=== PATIENT | female | born 1965 | race Caucasian/White ===

== ENCOUNTER 2018-01-31 14:43 | Emergency (ER) | payer MEDICAID ==
[~2018-01-31] VITALS: Ht 157.5 cm; Wt 95.0 kg
[~2018-01-31 14:43] MED LIST: ADV50250 IH; ALB0.5UD IH; AZIT250T PO; BUSP10TA11 PO; ESTR-8 PO; IBUP-1986 PO; LAMO200T2 PO; LEVA15HF4 IH; LURA40TA PO; PRED10TA23 PO; QUET200T PO; TIOT18CA7 IH; [UNRECOGNIZED DRUG - CODE] PO
[2018-01-31 14:55] VITALS: BP 148/95
[2018-01-31] MEDS ORDERED: SULF1TAB48 PO (15:24)
== END 2018-01-31 15:36 | disposition home or self-care (01) ==
LOC: ER 14:43
DX: L02.512 Cutaneous abscess of left hand (principal); L02.415 Cutaneous abscess of right lower limb; G89.29 Other chronic pain; J44.9 Chronic obstructive pulmonary disease, unspecified; Z86.14 Personal history of Methicillin resistant Staphylococcus aureus infection; F15.90 Other stimulant use, unspecified, uncomplicated; Z90.49 Acquired absence of other specified parts of digestive tract; Z79.2 Long term (current) use of antibiotics; Z79.899 Other long term (current) drug therapy
CPT/HCPCS: 99284

== ENCOUNTER 2019-01-04 13:04 | Emergency (ER) | payer MEDICAID ==
[~2019-01-04] VITALS: Ht 154.9 cm; Wt 77.3 kg
[2019-01-04] MEDS ORDERED: normal saline 1000ML IV soln IVB ONE (13:10)
[2019-01-04] MEDS ORDERED: LORazepam 2 mg/ml vial IV ONE (13:10)
[2019-01-04 13:32] LABS: BASOPHILS # (AUTO) 0.1 X10'3 (0-0.2); BASOPHILS % (AUTO) 0.7 % (0-1); EOSINOPHILS # (AUTO) 0.2 X10'3 (0-0.9); EOSINOPHILS % (AUTO) 1.7 % (0-6); HEMATOCRIT 43.3 % (35.0-45.0); HEMOGLOBIN 14.4 g/dl (12.0-16.0); LYMPHOCYTES % (AUTO) 21.6 % (21-51); MEAN CORPUSCULAR HEMOGLOBIN 29.1 PG (27.0-31.0); MEAN CORPUSCULAR HGB CONC 33.2 g/dL (33.0-36.5); MEAN CORPUSCULAR VOLUME 87.7 FL (78-98); MONOCYTES # (AUTO) 0.7 X10'3 (0-0.9); MONOCYTES % (AUTO) 7.5 % (2-12); NEUTROPHILS # (AUTO) 6.4 X10'3 (1.8-7.7); NEUTROPHILS % (AUTO) 68.5 % (42-75); PLATELET COUNT 344 X10'3 (140-440); RED BLOOD COUNT 4.93 X10'6 (4.20-5.60); RED CELL DISTRIBUTION WIDTH 14.1 % (11.5-14.5); WHITE BLOOD COUNT 9.3 X10'3 (4.5-11.0)
[2019-01-04 13:47] LABS: ALANINE AMINOTRANSFERASE 23 U/L (12-78); ALBUMIN 4.1 G/DL (3.4-5.0); ALBUMIN/GLOBULIN RATIO 1.2 (1.1-1.5); ALKALINE PHOSPHATASE 96 IU/L (46-116); ANION GAP 10 (8-16); ASPARTATE AMINO TRANSFERASE 14 U/L (10-37); BILIRUBIN,TOTAL 0.3 MG/DL (0.1-1.0); BLOOD UREA NITROGEN 26 MG/DL (7-18); CHLORIDE 105 MMOL/L (99-107); CREATININE 0.84 MG/DL (0.40-0.90); GLUCOSE 122 MG/DL (70-104); MAGNESIUM 1.8 MG/DL (1.5-2.4); POTASSIUM 3.5 MMOL/L (3.5-5.1); SODIUM 142 MMOL/L (135-145); TOTAL CARBON DIOXIDE 27.1 MMOL/L (24-32); TOTAL PROTEIN 7.5 G/DL (6.4-8.2); eGFR 71 ML/MIN
--- NOTE | 2019-01-04 13:48 | NUR ---
PT SLEEPING NOW AFTER MEDICATION. VSS.
[2019-01-04] MEDS ORDERED: ONDA4TAB12 PO (13:56)
[2019-01-04] MEDS ORDERED: MECL-111 PO (13:56)
--- NOTE | 2019-01-04 14:10 | NUR ---
Pt is stating at this time that she cannot go to CT unless she receives pain medication.
[2019-01-04 15:17] VITALS: BP 145/71
== END 2019-01-04 16:04 | disposition home or self-care (01) ==
LOC: ER 13:04
DX: R42 Dizziness and giddiness (principal); R55 Syncope and collapse; J44.9 Chronic obstructive pulmonary disease, unspecified; G89.29 Other chronic pain; F17.210 Nicotine dependence, cigarettes, uncomplicated; F15.90 Other stimulant use, unspecified, uncomplicated; Z90.49 Acquired absence of other specified parts of digestive tract; Z86.14 Personal history of Methicillin resistant Staphylococcus aureus infection; Z98.51 Tubal ligation status; Z60.2 Problems related to living alone; Z79.899 Other long term (current) drug therapy
CPT/HCPCS: 36415; 70450; 71045; 80053; 83735; 85025; 93005; 96361; 96374; 99284; J2060; J7030

== ENCOUNTER 2019-05-08 15:15 | Emergency (ER) | payer MEDICAID ==
[~2019-05-08 15:15] MED LIST changes: +MECL-159 PO; +ONDA4TAB12 PO
== END 2019-05-08 17:20 | disposition left against medical advice (07) ==
LOC: ER 15:15
DX: R51 Headache (principal); Z53.21 Procedure and treatment not carried out due to patient leaving prior to being seen by health care provider

== ENCOUNTER 2019-06-19 23:02 | Emergency (ER) | payer MEDICAID ==
[~2019-06-19] VITALS: Ht 154.9 cm; Wt 77.3 kg
[2019-06-19] MEDS ORDERED: ondansetron/PF 4mg/2ml inj IV ONE (23:15)
[2019-06-19] MEDS ORDERED: ketorolac trometh. 30mg/ml inj. IV ONE (23:15)
[2019-06-19] MEDS ORDERED: morphine 4 MG/ML inj SYRINge IV ONE (23:15)
[2019-06-19] MEDS ORDERED: triamcinolone acetonide 40mg/ml inj IM ONE (23:20)
[2019-06-19] MEDS ORDERED: methylPREDNISolone sod succ 125mg/2ml vial IV ONE (23:20)
[2019-06-19] MEDS ORDERED: normal saline 1000ml 1,000 ML IV ONE (23:55)
[2019-06-19 23:56] LABS: BASOPHILS # (AUTO) 0.1 X10'3 (0-0.2); BASOPHILS % (AUTO) 0.6 % (0-1); EOSINOPHILS # (AUTO) 0.1 X10'3 (0-0.9); HEMATOCRIT 36.7 % (35.0-45.0); HEMOGLOBIN 12.4 g/dl (12.0-16.0); LYMPHOCYTES # (AUTO) 1.3 X10'3 (1.1-4.8); LYMPHOCYTES % (AUTO) 10.5 % (21-51); MEAN CORPUSCULAR HEMOGLOBIN 29.4 PG (27.0-31.0); MEAN CORPUSCULAR HGB CONC 33.8 g/dL (33.0-36.5); MEAN PLATELET VOLUME 7.8 FL (7.4-10.4); MONOCYTES # (AUTO) 0.8 X10'3 (0-0.9); MONOCYTES % (AUTO) 6.3 % (2-12); NEUTROPHILS # (AUTO) 10.4 X10'3 (1.8-7.7); NEUTROPHILS % (AUTO) 81.6 % (42-75); PLATELET COUNT 232 X10'3 (140-440); RED BLOOD COUNT 4.22 X10'6 (4.20-5.60); RED CELL DISTRIBUTION WIDTH 14.4 % (11.5-14.5); WHITE BLOOD COUNT 12.8 X10'3 (4.5-11.0)
[2019-06-20 00:07] LABS: ALANINE AMINOTRANSFERASE 19 U/L (12-78); ALBUMIN 3.4 G/DL (3.4-5.0); ALKALINE PHOSPHATASE 74 IU/L (46-116); ANION GAP 5 (8-16); ASPARTATE AMINO TRANSFERASE 14 U/L (10-37); BILIRUBIN,TOTAL 0.6 MG/DL (0.1-1.0); BLOOD UREA NITROGEN 17 MG/DL (7-18); BUN/CREATININE RATIO 22.4 (6.6-38.0); CALCIUM 8.6 MG/DL (8.5-10.1); CHLORIDE 106 MMOL/L (99-107); CREATININE 0.76 MG/DL (0.40-0.90); GLUCOSE 116 MG/DL (70-104); POTASSIUM 3.1 MMOL/L (3.5-5.1); SODIUM 141 MMOL/L (135-145); TOTAL CARBON DIOXIDE 29.6 MMOL/L (24-32); TOTAL PROTEIN 6.8 G/DL (6.4-8.2); eGFR 80 ML/MIN
[2019-06-20 01:20] LABS: TROPONIN I < 0.04 NG/ML (0.0-0.05)
[2019-06-20] MEDS ORDERED: azithromycin 250mg tablet PO ONE (01:25)
[2019-06-20] MEDS ORDERED: ipratropium/albuterol 3ml nebule NEB ONE (01:25)
[2019-06-20] MEDS ORDERED: AZIT-63 PO (01:26)
[2019-06-20] MEDS ORDERED: ALBU8.5H8 INH (01:26)
[2019-06-20] MEDS ORDERED: PRED20TA PO (01:26)
[2019-06-20 02:06] VITALS: BP 145/80
== END 2019-06-20 02:08 | disposition home or self-care (01) ==
LOC: ER 23:03
DX: J44.1 Chronic obstructive pulmonary disease with (acute) exacerbation (principal); G89.29 Other chronic pain; F15.90 Other stimulant use, unspecified, uncomplicated; Z86.14 Personal history of Methicillin resistant Staphylococcus aureus infection; Z90.49 Acquired absence of other specified parts of digestive tract; Z98.51 Tubal ligation status; Z60.2 Problems related to living alone; Z79.899 Other long term (current) drug therapy
CPT/HCPCS: 36415; 71046; 80053; 83880; 84484; 85025; 93005; 94640; 96372; 96374; 96375; 99285; J1885; J2270; J2405; J2930; J3301; J7030; 94760

== ENCOUNTER 2019-12-01 10:35 | Emergency (ER) | payer MEDICAID ==
[~2019-12-01] VITALS: Ht 152.4 cm; Wt 70.5 kg
[~2019-12-01 10:35] MED LIST changes: +ALBU8.5H8 INH
[2019-12-01 11:29] LABS: BASOPHILS # (AUTO) 0.1 X10'3 (0-0.2); BASOPHILS % (AUTO) 0.5 % (0-1); EOSINOPHILS # (AUTO) 0.2 X10'3 (0-0.9); EOSINOPHILS % (AUTO) 1.6 % (0-6); HEMATOCRIT 44.3 % (35.0-45.0); HEMOGLOBIN 14.9 g/dl (12.0-16.0); LYMPHOCYTES # (AUTO) 1.4 X10'3 (1.1-4.8); LYMPHOCYTES % (AUTO) 10.3 % (21-51); MEAN CORPUSCULAR HEMOGLOBIN 29.9 PG (27.0-31.0); MEAN CORPUSCULAR HGB CONC 33.5 g/dL (33.0-36.5); MEAN CORPUSCULAR VOLUME 89.3 FL (78-98); MEAN PLATELET VOLUME 7.6 FL (7.4-10.4); MONOCYTES # (AUTO) 1.1 X10'3 (0-0.9); MONOCYTES % (AUTO) 7.9 % (2-12); NEUTROPHILS % (AUTO) 79.7 % (42-75); PLATELET COUNT 312 X10'3 (140-440); RED BLOOD COUNT 4.96 X10'6 (4.20-5.60); RED CELL DISTRIBUTION WIDTH 13.7 % (11.5-14.5); WHITE BLOOD COUNT 13.8 X10'3 (4.5-11.0)
[2019-12-01 11:32] LABS: CLARITY,URINE CLOUDY (Clear); GLUCOSE, URINE NEGATIVE (Neg); KETONES,URINE TRACE mg/dl (Neg); LEUKOCYTE ESTERASE ,URINE MODERATE (Neg); NITRITES, URINE NEGATIVE (Neg); OCCULT BLOOD,URINE TRACE-INTACT (Neg); PROTEIN,URINE 30 mg/dl (Neg)
[2019-12-01 11:33] LABS: COLOR,URINE DARK YELLOW (Yellow); UA COLLECTION TYPE CLN CATCH MIDSTREAM
[2019-12-01 11:45] LABS: ALANINE AMINOTRANSFERASE 14 U/L (12-78); ALBUMIN 3.7 G/DL (3.4-5.0); ALBUMIN/GLOBULIN RATIO 0.9 (1.1-1.5); ALKALINE PHOSPHATASE 86 IU/L (46-116); ANION GAP 10 (8-16); ASPARTATE AMINO TRANSFERASE 14 U/L (10-37); BILIRUBIN,TOTAL 0.5 MG/DL (0.1-1.0); BLOOD UREA NITROGEN 16 MG/DL (7-18); CALCIUM 9.2 MG/DL (8.5-10.1); CHLORIDE 104 MMOL/L (99-107); CREATININE 0.64 MG/DL (0.40-0.90); GLUCOSE 110 MG/DL (70-104); POTASSIUM 3.1 MMOL/L (3.5-5.1); SODIUM 141 MMOL/L (135-145); TOTAL CARBON DIOXIDE 27.3 MMOL/L (24-32); TOTAL PROTEIN 7.7 G/DL (6.4-8.2); eGFR > 90 ML/MIN
[2019-12-01 11:56] LABS: BACTERIA,URINE 1+ /HPF (Neg); CAL OXALATE CRYSTALS FEW /HPF (NEGATIVE); MUCUS STRANDS MANY /LPF (Neg); RBC,URINE 0-2 /HPF (0-2); SQUAMOUS EPITHELIAL CELL,UR MANY /LPF (FEW); WBC,URINE 30-50 /HPF (0-4)
[2019-12-01 11:57] LABS: TRICHOMONAS,URINE MOD /HPF (NEGATIVE)
[2019-12-01] MEDS ORDERED: diphenhydrAMINE 50 mg/ml inj IV ONE (12:05)
[2019-12-01] MEDS ORDERED: proCHLORperazine 10 MG/2 ml inj IV ONE (12:05)
[2019-12-01 13:36] VITALS: BP 137/76
== END 2019-12-01 13:45 | disposition home or self-care (01) ==
LOC: ER 10:35
DX: R51 Headache (principal); F15.10 Other stimulant abuse, uncomplicated; M79.18 Myalgia, other site; R11.0 Nausea; J44.9 Chronic obstructive pulmonary disease, unspecified; G89.29 Other chronic pain; Z86.14 Personal history of Methicillin resistant Staphylococcus aureus infection; Z90.49 Acquired absence of other specified parts of digestive tract; Z98.51 Tubal ligation status; Z60.2 Problems related to living alone; Z79.899 Other long term (current) drug therapy
CPT/HCPCS: 36415; 70450; 71045; 80053; 81001; 85025; 96374; 96375; 99285; J0780; J1200

== ENCOUNTER 2022-12-27 05:37 | Emergency (ER) | payer MEDICAID ==
[~2022-12-27] VITALS: Ht 152.4 cm; Wt 96.8 kg
[~2022-12-27 05:37] MED LIST changes: +ALBU8.5H17 INH; -ALBU8.5H8 INH; -MECL-159 PO; +MECL-302 PO
[2022-12-27] MEDS ORDERED: dexamethasone sod phosphate 10mg/ml inj IV STA (06:12)
[2022-12-27] MEDS ORDERED: ipratropium 0.5 MG/2.5ML nebule IH ONE (06:15)
[2022-12-27] MEDS ORDERED: albuterol 2.5 MG/3 ML nebule CONTNEB PRN (06:15)
[2022-12-27 06:59] VITALS: PULSE 113; RESP 22; O2SAT 98
[2022-12-27 07:43] LABS: BASOPHILS % (AUTO) 0.5 % (0-1); EOSINOPHILS % (AUTO) 0.1 % (0-6); HEMATOCRIT 36.8 % (35.0-45.0); HEMOGLOBIN 12.2 g/dl (12.0-16.0); LYMPHOCYTES # (AUTO) 0.7 X10'3 (1.1-4.8); LYMPHOCYTES % (AUTO) 6.9 % (21-51); MEAN CORPUSCULAR HGB CONC 33.1 g/dL (33.0-36.5); MEAN CORPUSCULAR VOLUME 87.7 FL (78-98); MEAN PLATELET VOLUME 6.8 FL (7.4-10.4); MONOCYTES % (AUTO) 10.1 % (2-12); NEUTROPHILS # (AUTO) 7.9 X10'3 (1.8-7.7); NEUTROPHILS % (AUTO) 82.4 % (42-75); PLATELET COUNT 231 X10'3 (140-440); RED CELL DISTRIBUTION WIDTH 14.6 % (11.5-14.5); WHITE BLOOD COUNT 9.5 X10'3 (4.5-11.0)
[2022-12-27 07:58] LABS: ALANINE AMINOTRANSFERASE 38 U/L (12-78); ALBUMIN 3.1 G/DL (3.4-5.0); ALBUMIN/GLOBULIN RATIO 0.8 (1.1-1.5); ALKALINE PHOSPHATASE 85 IU/L (46-116); ANION GAP 7 (8-16); ASPARTATE AMINO TRANSFERASE 24 U/L (10-37); BILIRUBIN,TOTAL 0.3 MG/DL (0.1-1.0); BLOOD UREA NITROGEN 21 MG/DL (7-18); BUN/CREATININE RATIO 21.4 (10.0-20.0); CALCIUM 8.9 MG/DL (8.5-10.1); CHLORIDE 100 MMOL/L (99-107); CREATININE 0.98 MG/DL (0.40-0.90); GLUCOSE 128 MG/DL (70-104); POTASSIUM 3.2 MMOL/L (3.5-5.1); SODIUM 137 MMOL/L (135-145); TOTAL CARBON DIOXIDE 29.8 MMOL/L (24-32); TOTAL PROTEIN 6.8 G/DL (6.4-8.2); eCRCL 46 ML/MIN; eGFR 59 ML/MIN
[2022-12-27 08:03] LABS: MAGNESIUM 1.9 MG/DL (1.5-2.4)
[2022-12-27 08:06] VITALS: PULSE 106; RESP 20; O2SAT 96
[2022-12-27] MEDS ORDERED: ALB0.5UD IH (09:16)
[2022-12-27 09:45] VITALS: BP 127/80; PULSE 106; RESP 19; TEMP 98.6; O2SAT 95
== END 2022-12-27 09:49 | disposition home or self-care (01) ==
LOC: ER 05:38
DX: J45.901 Unspecified asthma with (acute) exacerbation (principal); G89.29 Other chronic pain; M54.9 Dorsalgia, unspecified; F17.200 Nicotine dependence, unspecified, uncomplicated; F15.10 Other stimulant abuse, uncomplicated; Z79.899 Other long term (current) drug therapy
CPT/HCPCS: 36415; 71045; 80053; 83605; 83735; 84484; 85025; 87040; 87502; 87503; 87811; 93005; 96374; 99285; J1100; 94760